=== PATIENT | female | born 1965 | race Caucasian/White ===

== ENCOUNTER 2019-02-23 12:28 | Emergency (ER) | payer OTHER, SELFPAY ==
[2019-02-23] MEDS ORDERED: Ketorolac Tromethamine 30 MG/ML VIAL ONE (13:01)
--- NOTE | 2019-02-23 14:02 | RAD ---
LEFT SHOULDER 3 VIEWS: Date: 02/23/19 HISTORY: Left shoulder pain. FINDINGS/IMPRESSION: No fracture, dislocation, or bony destruction seen. 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 POS: [facility]
== END 2019-02-23 13:54 | disposition home or self-care (01) ==
LOC: SCSER 12:28
DX: S43.402A Unspecified sprain of left shoulder joint, initial encounter (principal); E78.2 Mixed hyperlipidemia; I10 Essential (primary) hypertension; F32.9 Major depressive disorder, single episode, unspecified; Z79.899 Other long term (current) drug therapy; X58.XXXA Exposure to other specified factors, initial encounter
CPT/HCPCS: 93005; 96372; J1885